=== PATIENT | male | born 1960 | race Caucasian/White ===

== ENCOUNTER 2022-10-18 16:54 | Emergency (ER) | payer OTHER ==
[~2022-10-18] VITALS: Ht 182.9 cm; Wt 97.5 kg
[2022-10-18] MEDS ORDERED: OXYC5 (18:07)
[2022-10-18] MEDS ORDERED: MORPHINE SULFAT15 M1 PO (18:07)
[2022-10-18] MEDS ORDERED: OMEP20ER PO (18:08)
[2022-10-18] MEDS ORDERED: FAMO40 PO (18:08)
[2022-10-18] MEDS ORDERED: DOCU100 (18:08)
[2022-10-18] MEDS ORDERED: PROM25 (18:08)
[2022-10-18] MEDS ORDERED: SENN187 PO (18:08)
[2022-10-18] MEDS ORDERED: AMLO5 PO (18:09)
[2022-10-18] MEDS ORDERED: MUPIROCIN15 GM (18:09)
[2022-10-18] MEDS ORDERED: ZOCOR20 MG PO (18:09)
[2022-10-18] MEDS ORDERED: METO10 PO (18:09)
[2022-10-18] MEDS ORDERED: ASCO500 (18:10)
[2022-10-18] MEDS ORDERED: Alph-E-Mixed400 UNIT (18:10)
[2022-10-18] MEDS ORDERED: POTCIT10 (18:10)
[2022-10-18] MEDS ORDERED: COQ-10100 MG (18:11)
[2022-10-18] MEDS ORDERED: THERA-D2000 UNIT PO (18:11)
[2022-10-18] MEDS ORDERED: ZINC15 (18:11)
[2022-10-18] MEDS ORDERED: MAGNESIUM OXID500 MG (18:11)
[2022-10-18] MEDS ORDERED: Milk Thistle175 M1 PO (18:12)
[2022-10-18] MEDS ORDERED: BACTRIM DS TAB1 EAC1 PO (18:33)
== END 2022-10-18 19:13 | disposition home or self-care (01) ==
LOC: ER 16:54
DX: L02.214 Cutaneous abscess of groin (principal); I10 Essential (primary) hypertension; Z91.041 Radiographic dye allergy status; Z88.8 Allergy status to other drugs, medicaments and biological substances; Z91.040 Latex allergy status; Z79.899 Other long term (current) drug therapy
CPT/HCPCS: 76857; 99284-25; A9270